=== PATIENT | male | born 1985 | race Two or more races ===

== ENCOUNTER 2017-08-24 10:23 | Emergency (ER) | payer MEDICAID ==
[~2017-08-24] VITALS: Ht 152.4 cm; Wt 99.8 kg
[2017-08-24 12:37] VITALS: BP 147/103
== END 2017-08-24 13:02 | disposition home or self-care (01) ==
LOC: ER 10:23
DX: H66.93 Otitis media, unspecified, bilateral (principal)

== ENCOUNTER 2018-01-30 09:38 | Emergency (ER) | payer MEDICAID ==
[~2018-01-30] VITALS: Ht 177.8 cm; Wt 99.3 kg
[2018-01-30 09:46] VITALS: BP 127/81
[2018-01-30] MEDS ORDERED: KETOROLAC TROMETH 60MG/2ML VIAL IM ONE (12:30)
[2018-01-30] MEDS ORDERED: CYCLOBENZAPRINE HCL 10 MG TAB PO ONE (12:30)
== END 2018-01-30 12:50 | disposition home or self-care (01) ==
LOC: ER 09:38
DX: M43.6 Torticollis (principal); M25.511 Pain in right shoulder; F17.210 Nicotine dependence, cigarettes, uncomplicated
CPT/HCPCS: 96372; 99283; J1885